=== PATIENT | female | born 1980 | race American Indian/Alaskan Native ===

== ENCOUNTER 2021-01-24 14:33 | Outpatient (CLI) | payer MEDICAID ==
[2021-01-24 15:18] LABS: Hematocrit 41.9 % (30.3-42.9); Hemoglobin 14.8 gm/dl (10.1-14.3); Mean Corpuscular HGB Conc 35 % (30-34); Mean Corpuscular Volume 73 fl (79-97); Platelet Count 270 K/mm3 (140-440); Red Blood Count 5.72 M/mm3 (3.65-5.03)
[2021-01-24 15:44] LABS: ABG Base Excess -0.5 mmol/L (-2.0-3.0); ABG HCO3 23.5 mmol/L (20.0-26.0); ABG Methemoglobin 0.6 % (0.0-1.5); ABG Oxygen Saturation 97.8 % (95.0-99.0); ABG PCO2 36.9 mm Hg; ABG PH 7.422 pH Units (7.350-7.450); ABG PO2 101.4 mm Hg (80.0-90.0)
--- NOTE | 2021-01-24 16:04 | XRay Report ---
CHEST PA AND LATERAL VIEWS INDICATION: CHRONIC OBSTRUCTIVE PULMONARY DISEASE. COMPARISON: None. FINDINGS: Support devices: None. Heart: Within normal limits. Lungs/Pleura: No acute pulmonary or pleural findings. IMPRESSION: 1. No acute findings. Signer Name: Jose Alejandro Caraballo MD Signed: 01/24/2021 4:00 PM Workstation Name: [id number]
[2021-01-24 16:22] LABS: Alanine Aminotransferase 29 units/L (7-56); Albumin 4.4 g/dL (3.9-5); Blood Urea Nitrogen 10 mg/dL (7-17); Calcium 9.9 mg/dL (8.4-10.2); Chol/HDL Ratio 3.88 %; HDL Cholesterol 50 mg/dL (40-59); Hemolysis Index 1; LDL Cholesterol,Direct 134 mg/dL (50-130)
[2021-01-24 16:25] LABS: BUN/Creatinine Ratio 14
== END 2021-01-24 14:34 | disposition home or self-care (01) ==
LOC: XRAY 14:33
PROVIDERS: ATTEND Internal Medicine
DX: J44.9 Chronic obstructive pulmonary disease, unspecified (principal); J30.89 Other allergic rhinitis; J20.9 Acute bronchitis, unspecified; I10 Essential (primary) hypertension; F32.9 Major depressive disorder, single episode, unspecified; Z68.38 Body mass index [BMI] 38.0-38.9, adult; R07.81 Pleurodynia
CPT/HCPCS: 36415; 36600; 71046; 80053; 80061; 82785; 82803; 84436; 84443; 85027; 86003

== ENCOUNTER 2021-01-30 12:33 | Outpatient (CLI) | payer MEDICAID ==
--- NOTE | 2021-01-31 10:53 | Electrocardiograph Report ---
[facility] Test Date: 2021-01-30 Test Time: 13:08:05 Pat Name: LONA CABALLERO Department: Room: Gender: F Cane Weigher: MARIYA : 1980 Requested By: SILAS LLAMAS Order Number: [id number] Reading MD: Koko Richardson Measurements Intervals [place] Rate: 69 P: 38 WI: 176 QRS: 28 QRSD: 85 T: -6 QT: 404 QTc: 432 Interpretive Statements Sinus rhythm Borderline T abnormalities, diffuse leads No previous ECG available for comparison Electronically Signed On 01-31-2021 10:53:35 EDT by Koko Richardson
== END 2021-01-30 12:34 | disposition home or self-care (01) ==
LOC: CARD 12:33
PROVIDERS: ATTEND Internal Medicine
DX: R07.81 Pleurodynia (principal); I10 Essential (primary) hypertension; J44.9 Chronic obstructive pulmonary disease, unspecified; J30.89 Other allergic rhinitis; J20.9 Acute bronchitis, unspecified; F32.9 Major depressive disorder, single episode, unspecified; Z68.38 Body mass index [BMI] 38.0-38.9, adult
CPT/HCPCS: 93005